=== PATIENT | male | born 1960 | race Caucasian/White ===

== ENCOUNTER 2018-01-30 08:28 | Emergency (ER) | payer BC, OTHER ==
[~2018-01-30] VITALS: Ht 177.8 cm; Wt 91.6 kg
[2018-01-30 08:28] VITALS: BP 147/82
[~2018-01-30 08:28] MED LIST: LEVO500T90 PO
[2018-01-30] MEDS ORDERED: IBUPROFEN 400 MG TABLET ONE (08:49)
[2018-01-30] MEDS ORDERED: IBUPROFEN 400 MG TABLET PO ONE (09:00)
== END 2018-01-30 09:12 | disposition home or self-care (01) ==
LOC: ER 08:35
DX: K04.7 Periapical abscess without sinus (principal); F12.10 Cannabis abuse, uncomplicated
CPT/HCPCS: 99283; A4606; Z7610